=== PATIENT | female | born 1950 | race Caucasian/White ===

== ENCOUNTER 2017-12-13 07:26 | Emergency (ER) | payer MEDICARE, MEDICAID ==
[~2017-12-13] VITALS: Ht 167.6 cm; Wt 86.2 kg
[~2017-12-13 07:26] MED LIST: HYDROCLOROTHIAZIDE; NEXIUM; TOPROL; WELLBUTRIN
--- NOTE | 2017-12-13 07:43 | NUR ---
MD is at bedside evaluating the patient.
[2017-12-13] MEDS ORDERED: IBUPROFEN 800 MG TABLET ONE (07:58)
[2017-12-13] MEDS ORDERED: IBUPROFEN 800 MG TABLET PO ONE (08:00)
[2017-12-13] MEDS ORDERED: predniSONE 50 MG TABLET PO ONE (08:45)
[2017-12-13] MEDS ORDERED: predniSONE 50 MG TABLET ONE (08:47)
--- NOTE | 2017-12-13 08:48 | NUR ---
Patient discharged to home in stable conditon. Written and verbal after care instructions given to patient. Patient verbalizes understanding of instructions. Copy of the test results (CD & paper copy) provided per patient's request. New soft neck collar given per patient's request & okayed this. Patient left ER with steady gait.
== END 2017-12-13 08:50 | disposition home or self-care (01) ==
LOC: ER 07:26
DX: M54.12 Radiculopathy, cervical region (principal); I10 Essential (primary) hypertension; K21.9 Gastro-esophageal reflux disease without esophagitis; Z88.5 Allergy status to narcotic agent
CPT/HCPCS: 72125; 99284; A4663; J7512

== ENCOUNTER 2022-02-10 11:27 | Inpatient (IN) | payer MEDICARE, OTHER ==
[~2022-02-10] VITALS: Ht 167.6 cm; Wt 74.8 kg
--- NOTE | 2022-02-10 11:33 | NUR ---
Pt. arrived via EMS [id number]. Pt. reports falling at home, denies LOC, pt. c/o of 01/14 left and right shoulder pain. MD evaluated patient at bedside. Addendum: 02/10/22 at 1202 by MILAD Amendment undone in EDM - 02/10/22 at 1222 by MILAD Pt. states having right shoulder surgery April 2021.
[2022-02-10] MEDS ORDERED: HYDROCODONE/APAP 5-325MG TABLET PO ONE (11:45)
[2022-02-10] MEDS ORDERED: HYDROCODONE/APAP 5-325MG TABLET ONE (11:45)
--- NOTE | 2022-02-10 12:05 | NUR ---
XRAY at bedside
--- NOTE | 2022-02-10 12:22 | NUR ---
Pt. states having right shoulder surgery October 01, 2021.
[2022-02-10] MEDS ORDERED: KETOROLAC TROMETHAMINE 30 MG INJ IM ONE (13:00)
[2022-02-10] MEDS ORDERED: KETOROLAC TROMETHAMINE 30 MG INJ ONE (13:27)
[2022-02-10] MEDS ORDERED: FAMO-132 PO (14:06)
[2022-02-10] MEDS ORDERED: BUPR100T5 PO (14:06)
[2022-02-10] MEDS ORDERED: METF-494 PO (14:06)
[2022-02-10] MEDS ORDERED: METO25TA6 PO (14:06)
--- NOTE | 2022-02-10 14:06 | NUR ---
Pt unable to recall dosages for her medications, needs further follow up.
[2022-02-10 14:22] LABS: HEMATOCRIT 38.5 % (31.2-41.9); MEAN CORPUSCULAR HEMOGLOBIN 28.3 uug (24.7-32.8); MEAN CORPUSCULAR VOLUME 85.1 fL (75.5-95.3); PLATELET COUNT (AUTO) 216 K/uL (179-408)
[2022-02-10 14:34] LABS: CREATININE 0.9 mg/dL (0.6-1.3); POTASSIUM 3.4 mmol/L (3.5-5.1)
[2022-02-10] MEDS ORDERED: ACETAMINOPHEN 325 MG TABLET PO PRN (15:00)
[2022-02-10] MEDS ORDERED: ONDANSETRON 4 MG/2 ML VIAL IV PRN (15:00)
[2022-02-10] MEDS ORDERED: POTASSIUM CHLORIDE 20 MEQ TAB.PRT.SR PO ONE (15:45)
[2022-02-10] MEDS ORDERED: POTASSIUM CHLORIDE 20 MEQ POWDER PACKET ONE (15:58)
[2022-02-10] MEDS ORDERED: LABETALOL HCL 100 MG/20 ML VIAL IV ONE (16:00)
[2022-02-10] MEDS ORDERED: LABETALOL HCL 100 MG/20 ML VIAL ONE (16:01)
[2022-02-10] MEDS ORDERED: HYDROMORPHONE 1 MG/1 ML DISP.SYRIN ONE (16:30)
[2022-02-10] MEDS ORDERED: HYDROMORPHONE 1 MG/1 ML DISP.SYRIN IV ONE (16:30)
--- NOTE | 2022-02-10 16:47 | NUR ---
Report given to Satnam ASIF
[2022-02-10 17:53] VITALS: BP 179/83
[2022-02-10] MEDS: KETOROLAC TROMETHAMINE 15 MG INJ IVP PRN ×2 (18:27→22:38)
[2022-02-10] MEDS ORDERED: hydrALAZINE HCL 20 MG/1 ML VIAL IV PRN (18:30)
--- NOTE | 2022-02-10 18:31 | NUR ---
Patient admitted from ER, alert, oriented x4, current blood pressure reported to CONCRETE PUMP OPERATOR Madisyn, no acute distress noted, no skin issues noted, patient is able to get up and sit up in bedside commode, verbally responsive, left shoulder in in sling.
[2022-02-10] MEDS ORDERED: EXEN2AUT SQ (18:45)
[2022-02-10] MEDS ORDERED: SUCR1TAB PO (18:45)
[2022-02-10] MEDS ORDERED: METO-356 PO (18:45)
[2022-02-10] MEDS ORDERED: TRAZ-182 PO (18:45)
[2022-02-10] MEDS ORDERED: MONT10TA33 PO (18:45)
[2022-02-10] MEDS ORDERED: LOSA50TA39 PO (18:45)
[2022-02-10] MEDS ORDERED: ROSU10TA2 PO (18:45)
[2022-02-10] MEDS ORDERED: CETI-355 PO (18:45)
[2022-02-10] MEDS ORDERED: TOLT2CAP22 PO (18:45)
[2022-02-10] MEDS ORDERED: BUPR-319 PO (18:45)
--- NOTE | 2022-02-10 19:04 | NUR ---
right finger xray result reported to LATASHA Mars. Addendum: 02/10/22 at 1905 by KATHI AKERS RN, RN educated patient not to put any pressure on right thumb, patient verbalized understanding of it
[2022-02-10 20:09] LABS: *BILIRUBIN,URIN NEGATIVE (NEGATIVE); *BLOOD, URINE NEGATIVE (NEGATIVE); *CLARITY,URINE CLEAR (CLEAR); *COLOR,URINE YELLOW (YELLOW); *KETONES,URINE 1+ (NEGATIVE); *UROBILINOGEN,URINE 0.2 E.U./dl (NORMAL); LEUKOCYTE ESTERASE ,URINE NEGATIVE (NEGATIVE); NITRITE, URINE NEGATIVE (NEGATIVE); UGLUCOSE NEGATIVE (NEGATIVE)
[2022-02-10 20:10] LABS: BACTERIA,URINE NONE SEEN /HPF (NONE SEEN); RBC,URINE 0-3 /HPF (0-3); SQUAMOUS EPITHELIAL CELL,UR FEW /HPF (NONE SEEN); WBC,URINE 0-3 /HPF (0-3)
[2022-02-10] MEDS: MONTELUKAST SODIUM 10 MG TABLET PO SCH (20:56)
[2022-02-10] MEDS: ATORVASTATIN 20 MG TABLET PO SCH (20:56)
[2022-02-10] MEDS: TRAZODONE 50 MG TABLET PO SCH (20:56)
[2022-02-10] MEDS: METOPROLOL SUCCINATE XL 25 MG TAB.SR.24H PO SCH (21:04)
[2022-02-10 22:36] VITALS: BP 162/76
[2022-02-11] MEDS: KETOROLAC TROMETHAMINE 15 MG INJ IVP PRN ×4 (03:49→20:14)
[2022-02-11 04:00] VITALS: BP 159/78
--- NOTE | 2022-02-11 07:04 | NUR ---
pt had good night,requested toradol for pain at 9pm and 4am,pt NPO after midnight will have surgery this morning,no bowel movement last night.
[2022-02-11 07:42] LABS: HEMATOCRIT 35.4 % (31.2-41.9); MEAN CORPUSCULAR HEMOGLOBIN 28.5 uug (24.7-32.8); MEAN CORPUSCULAR VOLUME 84.8 fL (75.5-95.3); PLATELET COUNT (AUTO) 222 K/uL (179-408)
--- NOTE | 2022-02-11 08:00 | NUR ---
RECEIVED PATIENT IN BED AWALKE ALERT AND ORIENTED X3 FARSI SPEAKING. REQUIRES MIN ASSESS WITH TRANSFER
[2022-02-11 08:11] LABS: CREATININE 0.8 mg/dL (0.6-1.3); MAGNESIUM 2.3 mg/dL (1.8-2.4); PHOSPHOROUS 3.1 mg/dL (2.5-4.9); POTASSIUM 3.9 mmol/L (3.5-5.1)
[2022-02-11 08:23] LABS: THYROID STIMULATING HORMONE 1.288 mIU/mL (0.358-3.740)
[2022-02-11] MEDS: METOPROLOL SUCCINATE XL 25 MG TAB.SR.24H PO SCH ×2 (08:49→20:32)
[2022-02-11] MEDS: SUCRALFATE 1 G TABLET PO SCH ×2 (08:50→17:13)
[2022-02-11] MEDS ORDERED: FAMOTIDINE 20 MG TABLET PO SCH (09:00)
[2022-02-11] MEDS ORDERED: LOSARTAN POTASSIUM 50 MG TABLET PO SCH (09:00)
[2022-02-11] MEDS ORDERED: METFORMIN XR 500 MG TAB.SR.24H PO SCH (09:00)
[2022-02-11] MEDS ORDERED: TOLTERODINE LA 2 MG CAP.SR.24H PO SCH (09:00)
[2022-02-11] MEDS ORDERED: KETOROLAC TROMETHAMINE 30 MG INJ IVP PRN (09:00)
[2022-02-11] MEDS ORDERED: buPROPion XL 150 MG TAB.SR.24H PO SCH (09:00)
[2022-02-11] MEDS ORDERED: Medication Not On Formulary EA (Metformin Hcl (Metformin Hcl Er) 1 TAB) PO SCH (09:00)
[2022-02-11] MEDS ORDERED: buPROPion SR 100 MG TABLET.SA PO SCH (09:00)
--- NOTE | 2022-02-11 10:00 | NUR ---
SEEN BY HOSPITALIST FOR FOLLOW-UP STILL WAITING ORTHO CONSULT FROM DR LOPEZ
--- NOTE | 2022-02-11 11:00 | NUR ---
SPOKE WITH DR LOPEZ REGARDING ORTHO CONSULT AND SAID WILL BE SEEING PATIENT TODAY
--- NOTE | 2022-02-11 11:28 | NUR ---
CONTINUE WITH PRN MEDS ORDERED, NO ACUTE CHAGE FROM MORNING ASSESSMENT
[2022-02-11 11:46] VITALS: BP 172/71
[2022-02-11] MEDS ORDERED: POTASSIUM CHLORIDE 20 MEQ in IV 1/2NS 1000 ML 1,000 ML IV PRN (12:30)
[2022-02-11] MEDS ORDERED: CETIRIZINE HCL 10 MG TABLET PO SCH (12:30)
--- NOTE | 2022-02-11 15:00 | NUR ---
RANDOLPH DURAN NOTIFIED ABOUT DAUGHTER WANTING MOM TO GO TO [facility] IN SPITE OF DR LOPEZ SEEING FOR CONSULT. ASSEMBLER [employer] MADE AWARE AND NOTIFIED [facility]. PER HOSPITALIST PATIENT CAN GO AMA
[2022-02-11 16:35] VITALS: BP 160/62
--- NOTE | 2022-02-11 17:56 | NUR ---
BP 221/105, DENIES SANDHU OR DIZZINESS, MEDICATED WITH PRN MEDS AND OBSERVED. SPLINT RIGHT THUMB APPLIED BY ER STAFF
[2022-02-11 18:43] VITALS: BP 160/70
[2022-02-11] MEDS: TRAZODONE 50 MG TABLET PO SCH (20:05)
[2022-02-11] MEDS: MONTELUKAST SODIUM 10 MG TABLET PO SCH (20:05)
[2022-02-11] MEDS: ATORVASTATIN 20 MG TABLET PO SCH (20:05)
[2022-02-11 20:32] VITALS: BP 164/85
--- NOTE | 2022-02-11 22:00 | NUR ---
Pt left AMA with Mal[facility] in stable condition. IV removed
== END 2022-02-11 22:10 | disposition left against medical advice (07) | DRG 563 ==
LOC: ER 11:34 → MEDSURG3 16:53
PROVIDERS: ADMIT Registered Nurse; ATTEND Registered Nurse
DX: S42.292A Other displaced fracture of upper end of left humerus, initial encounter for closed fracture (principal); S62.521A Displaced fracture of distal phalanx of right thumb, initial encounter for closed fracture; E11.9 Type 2 diabetes mellitus without complications; Z20.822 Contact with and (suspected) exposure to COVID-19; F32.A Depression, unspecified; I10 Essential (primary) hypertension; W19.XXXA Unspecified fall, initial encounter; Y93.9 Activity, unspecified; Y92.009 Unspecified place in unspecified non-institutional (private) residence as the place of occurrence of the external cause; Z96.611 Presence of right artificial shoulder joint
CPT/HCPCS: 36415; 71045; 73030; 73060; 73140; 83735; 84100; 84443; 85025; 85610; 93005; 93307; G0378; J0360; J1170; J1885; J3480; J3490; J7042